=== PATIENT | female | born 1985 | race Asian ===

== ENCOUNTER 2017-09-16 08:47 | Emergency (ER) | payer OTHER ==
[~2017-09-16] VITALS: Ht 160 cm; Wt 90.7 kg
[2017-09-16 09:55] VITALS: BP 148/92; TEMP 99
== END 2017-09-16 09:55 | disposition home or self-care (01) ==
LOC: ED 08:47
DX: J02.9 Acute pharyngitis, unspecified (principal)
CPT/HCPCS: 87081; 87880; 99282

== ENCOUNTER 2018-03-16 19:30 | Emergency (ER) | payer OTHER ==
[~2018-03-16] VITALS: Ht 162.6 cm; Wt 81.6 kg
[2018-03-16 20:20] LABS: PLATELET COUNT 371 K/uL (152-353)
[2018-03-16 20:25] LABS: POTASSIUM 2.8 mmol/L (3.6-5.2)
[2018-03-16 23:44] VITALS: BP 130/76; TEMP 99.7
== END 2018-03-16 23:44 | disposition home or self-care (01) ==
LOC: ED 19:30
DX: L05.91 Pilonidal cyst without abscess (principal)
CPT/HCPCS: 36415; 80053; 81000; 83605; 85027; 87081; 87880; 96374; 99284; J0696

== ENCOUNTER 2018-03-22 14:29 | Emergency (ER) | payer OTHER ==
[~2018-03-22] VITALS: Ht 162.6 cm; Wt 81.6 kg
[2018-03-22 15:30] VITALS: BP 120/72; TEMP 98.3
== END 2018-03-22 15:36 | disposition home or self-care (01) ==
LOC: ED 14:29
PROC: 0H98XZZ Drainage of Buttock Skin, External Approach (ICD-10-PCS; principal; 2018-03-22)
DX: L02.31 Cutaneous abscess of buttock (principal)
CPT/HCPCS: 87070; 87077; 87186; 87205; 96372; 99283

== ENCOUNTER 2020-12-11 10:24 | Emergency (ER) | payer OTHER ==
[~2020-12-11] VITALS: Ht 162.6 cm; Wt 86.2 kg
[2020-12-11 10:25] VITALS: BP 124/80; TEMP 99
== END 2020-12-11 11:10 | disposition home or self-care (01) ==
LOC: ED 10:24
DX: L02.31 Cutaneous abscess of buttock (principal)
CPT/HCPCS: 96372; 99283; J0696; J1885